=== PATIENT | female | born 1995 | race Caucasian/White ===

== ENCOUNTER 2017-02-14 17:49 | Inpatient (IN) | payer OTHER ==
--- NOTE | 2017-02-14 18:27 | ED ---
Fred Traylor Thomas, scribed for Nnamdi Luu MD on 02/14/17 at 1815 . Psychiatric Complaint - HPI Summary HPI Summary: The pt is a 21 y/o F BIBA in need of a MHE. Per Aleida Luna RN, the patient has two tests tomorrow and her boyfriend has expressed suicidal ideation recently. These stressors have caused her to feel depressed. She feels as if she is somehow responsible for her boyfriends SI and that her presence in the ED today will exacerbate his SI. She is tearful in the examination room. She denies a prior Hx of depression or suicidal ideation. PMHx: previously healthy. PSHx: wisdom teeth removal. SHx: no smoking, occasional alcohol use, no illicit drug use. FHx: DM. She is from [place] and her parents are currently on vacation in [place]. They are aware of her status in the emergency room. - History Of Current Complaint Time Seen by Provider: 02/14/17 17:54 Hx Obtained From: Patient Onset/Duration: Lasting Days - Recent onset, Still Present Timing: Constant Severity Currently: Moderate Character: Depressed Aggravating Factor(s): Recent Stress - boyfriend's SI as well as her two tests tomorrow Alleviating Factor(s): Nothing Recent Stressor(s): Two tests tomorrow and boyfriend has SI PMH/Surg Hx/FS Hx/Imm Hx Previously Healthy: Yes Endocrine/Hematology History: Denies: Hx Diabetes Cardiovascular History: Denies: Hx Hypertension - Surgical History Surgery Procedure, Year, and Place: [place] teeth removal - Family History Known Family History: Positive: Diabetes - Social History Occupation: Student Lives: Dormitory/Roommates Alcohol Use: Occasionally Hx Substance Use: No Substance Use Type: Reports: None Hx Tobacco Use: No Smoking Status (MU): Never Smoked Tobacco Review of Systems Negative: Fever Psychological: Other - Stress, depression All Other Systems Reviewed And Are Negative: Yes Physical Exam Triage Information Reviewed: Yes Vital Signs Reviewed: Yes Appearance: Positive: Well-Appearing, No Pain Distress Skin: Positive: Warm, Skin Color Reflects Adequate Perfusion, Dry Head/Face: Positive: Normal Head/Face Inspection Eyes: Positive: Normal ENT: Positive: Normal ENT inspection Neck: Positive: Supple, Nontender Respiratory/Lung Sounds: Positive: Clear to Auscultation, Breath Sounds Present Cardiovascular: Positive: RRR Abdomen Description: Positive: Nontender, Soft Bowel Sounds: Positive: Present Musculoskeletal: Positive: Normal Neurological: Positive: Normal Psychiatric: Positive: Depressed, Other - She is tearful Course/Dx - Course Course Of Treatment: Ms. Draper came in quite upset. She is labile and labs have been ordered. I expect they will be normal and she will get a MHE. - Differential Dx/Clinical Impression Provider Diagnosis: Situational depression Discharge - Discharge Plan Condition: Stable Disposition: OTHER Discharge Disposition Comment: Change of Shift The documentation as recorded by the Fred suarez Thomas accurately reflects the service I personally performed and the decisions made by me, Nnamdi Luu MD.
[2017-02-14 18:53] LABS: Hematocrit 39 % (35-47); Mean Corpuscular HGB Conc 34 g/dl (31-36); Mean Corpuscular Hemoglobin 31 pg (27-31); Mean Corpuscular Volume 93 fL (80-97); Mean Platelet Volume 7 um3 (7.4-10.4); Red Blood Count 4.15 10^6/ul (4.0-5.4); Red Cell Distribution Width 13 % (10.5-15); White Blood Count 8.2 10^3/ul (3.5-10.8)
[2017-02-14 19:08] LABS: ALT 35 U/L (7-52); AST 43 U/L (13-39); Albumin 4.2 g/dL (3.2-5.2); Alkaline Phosphatase 52 U/L (34-104); Anion Gap 8 mmol/L (2-11); BUN/Creatinine Ratio 21.2 (8-20); Blood Urea Nitrogen 14 mg/dL (6-24); CO2 Carbon Dioxide 24 mmol/L (22-32); Calcium 9.4 mg/dL (8.6-10.3); Chloride 104 mmol/L (101-111); EGFR African American 148.4 (>60); EGFR Non-African American 115.4 (>60); Globulin 3.1 g/dL (2-4); Glucose 89 mg/dL (70-100); Potassium 3.9 mmol/L (3.5-5.0); Sodium 136 mmol/L (133-145); Total Protein 7.3 g/dL (6.4-8.9)
[2017-02-14 19:33] LABS: Acetaminophen < 15 mcg/mL; Alcohol < 10 mg/dL (<10); Salicylate < 2.50 mg/dL (<30)
[2017-02-14 20:02] LABS: Urine Bilirubin Negative (Negative); Urine Glucose Negative (Negative); Urine Nitrite Negative (Negative)
[2017-02-14 20:23] LABS: Benzodiazepine Urine Screen None Detected (None Detect)
[2017-02-15] MEDS ORDERED: Acetaminophen TAB* 325 MG PO PRN (04:07)
[2017-02-15] MEDS ORDERED: Al Hydrox/Mg Hydrox/Simet LIQ* 30 ML UDC PO PRN (04:07)
[2017-02-15] MEDS: Vitamin THERAPEUTIC TAB PO SCH (11:16)
[2017-02-15] MEDS: hydrOXYzine HCL TAB* 25 MG PO PRN (13:46)
--- NOTE | 2017-02-15 18:44 | HP ---
HISTORY AND PHYSICAL: DATE OF ADMISSION: 02/15/17 SUPERVISING PSYCHIATRIST: Dr. Jackson Slater * (DICTATED BY PRAKASH NELSON NP) JUSTIFICATION FOR ADMISSION: The patient presented to the emergency department via 9.41. She was sent there from [facility] due to feelings of self -harm and suicidal ideation. She had a plan for suicide include a set of knife in her bedroom. The patient merits hospitalization for immediate safety and stabilization. CHIEF COMPLAINT TODAY: "I felt so trapped, there was no way out." HISTORY OF PRESENT ILLNESS: The patient is a 21-year-old [employer] student. 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 She states that her freshman year of college "went perfectly." Approximately, 1 year ago, she started dating a young man named Loco. Towards the end of past summer, he was having increased depression and threatening suicide daily. He leaned on her quite a lot and expected her to prevent him from acting on his suicidal thoughts. His mother also asked Kathryn to watch over him and put extra pressure on Kathryn to make sure that Loco was safe. Kathryn reports that over the past few weeks, she has had decreasing motivation. She has had decreased concentration. She has not been able to study for her midterm exams. She states that she has been increasingly nervous including her stomach hurting and throwing up. She reports difficulty sleeping. She states that last Sunday "something in me " and has not been herself since then. Yesterday, she went to a walking appointment at [facility] and was sent to the emergency room due to her high risk of suicide. The patient was agreeable to mental health evaluation and admission to the mental health unit. She states that she saw her boyfriend walk past her room in the emergency room and this frightened her. She states that she did not want to have to deal with him if he were in the same mental health unit or same emergency room. She denies OCD symptoms. She denies history of eating disorder. She denies previous periods of depression or self-harm. She denies AV hallucinations, delusions, or phobias. PAST PSYCHIATRIC HISTORY: None. TRAUMA/ABUSE HISTORY: Denies. PAST MEDICAL HISTORY: No active medical problem. Denies history of head injury , seizure, or concussion. LMP last week. PRIMARY CARE PROVIDER: [facility]. CURRENT MEDICATIONS: 1. control pill daily. 2. Ampicillin twice a day for acne. She is unsure of the name and dose of the medication. ALLERGIES: No known drug allergies. FAMILY PSYCHIATRIC HISTORY: Her older sister had depression in her teens and attempted suicide. Maternal uncle suicided approximately 30 years ago. No other known family history. SOCIAL HISTORY: Kathryn is the youngest of the 2 daughters by parents. She grew up in the [facility]. Her 21-year-old sister, Tabatha, is a college student at [employer] in [place]. Her parents are Sara and Stanton. 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 She is thoroughly enjoying her education with exception of above stressors. She denies substance use. She denies or legal history. She currently lives in a house with dozen male friends. She has a close network of friends including her roommate from last year. She states she is still interactive with her friends from high school via social media. REVIEW OF SYSTEMS: Constitutional: Negative. The patient denies headache or double vision. Denies sore throat, cough, chest pain, difficulty breathing, abdominal pain, nausea, vomiting, diarrhea, or constipation. She denies difficulty ambulating, enlarged lymph nodes, rashes, fevers, or changes in mentation. PHYSICAL EXAMINATION GENERAL: Positive well appearing. No pain or distress. VITAL SIGNS: Most recently, temp 98.5, pulse 68, respiratory rate 16, O2 saturation 100%, BP 108/68. Height 5 feet 3 inches, weight 120 pounds. HEENT: Head and face: Normal head and face inspection. Eyes: Positive normal EOMI. ENT: Positive normal ENT inspection. Trachea midline. NECK: Positive supple, nontender. RESPIRATORY: Lung sounds positive, clear to auscultation. Breath sounds present. CARDIOVASCULAR: Positive heart, regular rate and rhythm. Pulses symmetrical bilaterally in upper and lower extremities. ABDOMEN: Soft, nontender. Bowel sounds present. MUSCULOSKELETAL: Strength normal ROM. SKIN: Positive warm and dry. Skin color reflects adequate perfusion. MENTAL STATUS EXAM: The patient is a small-framed, 21-year-old female, lying in bed with covers over her. She is tearful. She is cooperative, answers questions fully. She appears stated age, alert and oriented x3. Concentration is fair. Memory is 3/3. Her mood is "terrified." Affect is tearful. Eye contact is good. Speech is soft and articulate. Thought process circumstantial in regards to relationship with her boyfriend. Thought content is positive for SI. She is pretty occupied with welfare of her boyfriend. Her insight is good. Her judgment is good. Her fund of knowledge is excellent. LABORATORY DATA: Obtained in the emergency department, CBC is grossly unremarkable. Chemistry: BUN, creatinine ratio is high at 21.2. AST 43. TSH normal at 1.6. Negative HCG. Urinalysis is normal. Toxicology negative for salicylates, acetaminophen, or alcohol, and her urine drug screen was negative. DIAGNOSES: Adjustment disorder with depressed mood, severe stressors related to mental illness with her significant other. ASSESSMENT: Mechelle is a 21-year-old [employer] sophomore, who reports significant decline in functioning in the past month. She reports that her boyfriend of approximately 1 year has been increasingly depressed and threatening suicide. He and his mother have requested that she help maintain his safety and she has felt that this was taxing on her. 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 Her mother, Sara, is flying from [place] and arriving tomorrow afternoon. She will be visiting with Kathryn until Sunday next week. PLAN: Admit to adult behavioral services unit on status, code status is full, safety checks every 15 minutes. The patient does not seem appropriate for antidepressant therapy at this time, as this is seemingly an acute exacerbation of her symptoms. She is agreeable to current p.r.n. use of hydroxyzine for anxiety. She is encouraged to call her friend or roommate to bring her own medications from home, which she is agreeable to do. We will initiate therapeutic, milieu, individual sessions, and psychoeducational groups. Estimated length of stay is 2 to 3 days. If the patient and mother are agreeable, she may be discharged to her mother tomorrow after meeting with treatment team. The patient will be referred to continue outpatient services at the time of discharge. PRAKASH NELSON, SMOKING TOBACCO CUTTER OPERATOR [id number]/[facility] #: [id number] [facility] STATE HOSPITALRocael
[2017-02-16] MEDS ORDERED: Influenza VAC *QUAD* 2017-18* 0.5 ML SYRINGE IM ONE (09:00)
[2017-02-16] MEDS: Vitamin THERAPEUTIC TAB PO SCH (09:28)
[2017-02-16] MEDS: hydrOXYzine HCL TAB* 25 MG PO PRN (09:32)
--- NOTE | 2017-02-16 16:58 | PN ---
Subjective - Subjective Service Type: 60227 Hosp care 15 min low complexity Subjective: Patient presents as dysphoric with flat affect. She reports her boyfriend's mother visited last evening and apologized to Kathryn. However, she also asked Kathryn to wait to break up with Loco until he is stable. Kathryn states that she intends to "just tell her what she wants to hear and do what's best for me." She states that she is unsure about readiness for discharge. Objective - Appearance Appearance: Thin Framed Dysmorphic Features: Yes Hygiene: Normal Grooming: Fairly Well Kept - Behavior Psychomotor Activities: Abnormal-Decreased Exhibits Abnormal Movement: No - Attitude and Relatedness Attitude and Relatedness: Withdrawn Eye Contact: Fair - Speech Quality: Unpressured Latencies: Normal Quantity: Appropriate - Mood Patient's Decription of Mood: "Fine" - Affect Observed Affect: Depressed Affect Consistent with: Dysphoria - Thought Process Patient's Thought Process: Coherent Thought Content: No Passive Wish, No Suicidal Planning, No Homicidal Ideation, No Paranoid Ideation - Sensorium Experiencing Hallucinations: No, Sensorium is Clear Type of Hallucinations: Visual: No, Auditory: No, Command: No - Level of Consciousness Level of Consciousness: Alert Orientation: Yes Intact, Yes Orientated to Time, Yes Orientated to Place, Yes Orientated to Person - Impulse Control Impulse Control: Tenuous - Insight and Judgement Insight and Judgement: Fair - Group Participation Particating in Group Activities: No - Medication Management Medication Management Adherence: Yes Assessment - Assessment Merits Inpatient Hospitalization: For Immediate Safety, For Stabilization, For Discharge Planning Inpatient DSM-IV Dx: adjustment d/o with depressed mood Clinical Impression: Bonny 21yo female, [employer] sophomore. Adjustment d/o with depressed mood. Her boyfriend has been very depressed and suicidal. He and his mother have expected her to monitor and support him. She crumbled with the unrealistic expectations. Plan - Plan Treatment Plan: Name: RORY PANIAGUA Birthdate: 1995 [id number] continue acute intensive psychiatric treatment. Discharge planned for sunday to return to [employer] and attend [facility] appt in the afternoon. Continued Medication Management: Different Medication Medications: Current Medications Acetaminophen (Tylenol Tab*) 650 mg PO Q4H PRN PRN Reason: PAIN or TEMP > 101 F Al Hydrox/Mg Hydrox/Simethicone (Maalox Plus*) 30 ml PO Q4H PRN PRN Reason: INDIGESTION Hydroxyzine HCl (Atarax Tab*) 25 mg PO Q6H PRN PRN Reason: ANXIETY Last Admin: 02/16/17 09:32 Dose: 25 mg Multivitamins (Theragran Tab*) 1 tab PO DAILY [facility] Last Admin: 02/16/17 09:28 Dose: Not Given - Discharge Plan Discharge Plan: Outpatient Follow Up Outpatient Program: Counseling/Psych Services at [facility]
[2017-02-17] MEDS: ADAPALENE TOPICAL SCH (10:13)
[2017-02-17] MEDS: [UNRECOGNIZED DRUG - MIXTURE] PO SCH (10:13)
[2017-02-17] MEDS: Ampicillin CAP* 500 MG PO SCH (10:13)
[2017-02-17] MEDS: BENZOYL PEROXIDE TOPICAL SCH (10:13)
[2017-02-17] MEDS: Vitamin THERAPEUTIC TAB PO SCH (10:24)
[2017-02-17] MEDS: hydrOXYzine HCL TAB* 25 MG PO PRN (10:54)
--- NOTE | 2017-02-17 17:05 | PN ---
<TayMeghana - Last Filed: 02/17/17 17:23> Subjective - Subjective Service Type: 21113 Hosp care 15 min low complexity Subjective: Kathryn is tearful, reports her boyfriend is planning to visit this evening and she will break up with him. Describes her mood as depressed, but also that she is anxious to put this relationship in the past. She states that she needs to get out of here, wants to get on with her life. Reports thoughts of SIB are intermittent. Denies suicidal ideation. Mood is "depressed". 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 Objective - Appearance Appearance: Healthy Appearing Dysmorphic Features: No Hygiene: Normal Grooming: Well Kept - Behavior Psychomotor Activities: Normal Exhibits Abnormal Movement: No - Attitude and Relatedness Attitude and Relatedness: Appropriate Eye Contact: Fair - Speech Quality: Unpressured Latencies: Normal Quantity: Appropriate - Mood Patient's Decription of Mood: "depressed" - Affect Observed Affect: Tearful Affect Consistent with: Dysphoria - Thought Process Patient's Thought Process: Coherent, Goal Directed Thought Content: No Passive Wish, No Suicidal Planning, No Homicidal Ideation, No Paranoid Ideation - Sensorium Experiencing Hallucinations: No, Sensorium is Clear Type of Hallucinations: Visual: No, Auditory: No, Command: No - Level of Consciousness Level of Consciousness: Alert Orientation: Yes Intact, Yes Orientated to Time, Yes Orientated to Place, Yes Orientated to Person - Impulse Control Impulse Control: Intact - Insight and Judgement Insight and Judgement: Fair - Group Participation Particating in Group Activities: Yes - Medication Management Medication Management Adherence: Yes - Hydroxyzine 25 mg ealrlier in day for anxiety over boyfriend coming to visit. 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 Admitted on 02/14/17, with suicidal ideation in the context of her boyfriend having his own SI and feeling that she needs to be responsible for his mental health. Additional stressors reported are 2 midterms this week she was unable to take. She has no past psychiatric history, no active medical problems. Her mother is here in town until Wednesday 02/21. I spoke briefly with mother who states that Mechelle has an appointment scheduled with [facility] on 02/19 at 3pm. Plan - Plan Treatment Plan: Name: MECHELLE PANIAGUA Birthdate: 1995 [id number] Medications: Current Medications Acetaminophen (Tylenol Tab*) 650 mg PO Q4H PRN PRN Reason: PAIN or TEMP > 101 F Al Hydrox/Mg Hydrox/Simethicone (Maalox Plus*) 30 ml PO Q4H PRN PRN Reason: INDIGESTION Ampicillin (Ampicillin Cap*) 500 mg PO BID [facility] Last Admin: 02/17/17 10:13 Dose: 500 mg Hydroxyzine HCl (Atarax Tab*) 25 mg PO Q6H PRN PRN Reason: ANXIETY Last Admin: 02/17/17 10:54 Dose: 25 mg Multivitamins (Theragran Tab*) 1 tab PO DAILY [facility] Last Admin: 02/17/17 10:24 Dose: Not Given Pto Nf Med* Tri Lo (Karen Bcp) 1 admin PO DAILY [facility] Last Admin: 02/17/17 10:13 Dose: 1 admin Pto Nf Med* Epiduo Forte Cream ( Adapalene/Benzoil Peroxide) 1 admin TOPICAL DAILY [facility] Last Admin: 02/17/17 10:13 Dose: 1 admin <Lazaro Huggins - Last Filed: 02/18/17 17:45> Subjective - Subjective Subjective: Reviewed this note written by student psychiatric nurse practitioner, Meghana Cross, and approved it after discussion with her. Plan - Plan Treatment Plan: Name: MECHELLE PANIAGUA Birthdate: 1995 [id number] Medications: Current Medications Acetaminophen (Tylenol Tab*) 650 mg PO Q4H PRN PRN Reason: PAIN or TEMP > 101 F Al Hydrox/Mg Hydrox/Simethicone (Maalox Plus*) 30 ml PO Q4H PRN PRN Reason: INDIGESTION Ampicillin (Ampicillin Cap*) 500 mg PO BID [facility] Last Admin: 02/18/17 09:54 Dose: 500 mg Hydroxyzine HCl (Atarax Tab*) 25 mg PO Q6H PRN PRN Reason: ANXIETY Last Admin: 02/17/17 10:54 Dose: 25 mg Multivitamins (Theragran Tab*) 1 tab PO DAILY [facility] Last Admin: 02/18/17 09:54 Dose: Not Given Pto Nf Med* Tri Lo (Karen Bcp) 1 admin PO DAILY [facility] Last Admin: 02/18/17 09:54 Dose: 1 admin Pto Nf Med* Epiduo Forte Cream ( Adapalene/Benzoil Peroxide) 1 admin TOPICAL DAILY [facility] Last Admin: 02/18/17 09:54 Dose: 1 admin
[2017-02-18] MEDS: Vitamin THERAPEUTIC TAB PO SCH (09:54)
[2017-02-18] MEDS: [UNRECOGNIZED DRUG - MIXTURE] PO SCH (09:54)
[2017-02-18] MEDS: ADAPALENE TOPICAL SCH (09:54)
[2017-02-18] MEDS: Ampicillin CAP* 500 MG PO SCH ×3 (09:54→20:50)
[2017-02-18] MEDS: BENZOYL PEROXIDE TOPICAL SCH (09:54)
[2017-02-19 08:18] VITALS: BP 102/54
[2017-02-19] MEDS: Ampicillin CAP* 500 MG PO SCH (09:04)
[2017-02-19] MEDS: ADAPALENE TOPICAL SCH (09:06)
[2017-02-19] MEDS: [UNRECOGNIZED DRUG - MIXTURE] PO SCH (09:06)
[2017-02-19] MEDS: BENZOYL PEROXIDE TOPICAL SCH (09:06)
[2017-02-19] MEDS: Vitamin THERAPEUTIC TAB PO SCH (09:06)
--- NOTE | 2017-02-19 12:29 | DCNOTE ---
<KiLibraCabaMeghana garcia - Last Filed: 02/19/17 12:30> Subjective - Subjective Service Types: 21349 Hosp DC Day Mgmt simple under 30 min - Patient is found smiling with bags packed for discharge. She is alert and oriented x3. Thought are orgaqnized and Discharge Date: 02/19/17 Subjective: Patient is found smiling with bags packed for discharge. She is alert and oriented x3. Her mood is good, affect is full. Thoughts are organized and forward thinking. Denies suicidal/homicidal ideation, denies urge for self injurious behavior. Mother is here until Sunday, patient plans to spend [facility] with [facility]. She has a [facility] appointment at 3pm today. She is looking forward to "getting her brain in gear again", and back to school. Objective - Appearance Appearance: Healthy Appearing Dysmorphic Features: No Hygiene: Normal Grooming: Well Kept - Behavior Psychomotor Activities: Normal Exhibits Abnormal Movement: No - Attitude and Relatedness Attitude and Relatedness: Well Related Eye Contact: Good - Speech Quality: Unpressured Latencies: Normal Quantity: Appropriate - Mood Patient's Decription of Mood: "Good" - Affect Observed Affect: Euphoric Affect Consistent with: Euthymia - Thought Process Patient's Thought Process: Coherent, Goal Directed Thought Content: No Passive Wish, No Suicidal Planning, No Homicidal Ideation, No Paranoid Ideation - Sensorium Experiencing Hallucinations: No, Sensorium is Clear Type of Hallucinations: Visual: No, Auditory: No, Command: No - Level of Consciousness Level of Consciousness: Alert Orientation: Yes Intact, Yes Orientated to Time, Yes Orientated to Place, Yes Orientated to Person - Impulse Control Impulse Control: Intact - Insight and Judgement Insight and Judgement: Good - Group Participation Particating in Group Activities: Yes - Medication Management Medication Management Adherence: Yes - no psychotropics DC Assessment - Assessment Clinical Impression: 21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 Admitted on 02/14/17, with suicidal ideation in the context of her boyfriend having his own SI and feeling that she needs to be responsible for his mental health. Additional stressors reported are 2 midterms this week she was unable to take. She has no past psychiatric history, no active medical problems. Her mother is here in town until Wednesday 02/21. I spoke briefly with mother who states that Mechelle has an appointment scheduled with [facility] on 02/19 at 3pm. Merits Inpatient Hospitalization: No Clear for Discharge: Adequate Clinical Respons, Acceptable Safety Profile Inpatient DSM-IV Dx: adjustment d/o with depressed mood - [place] [facility] Mental Illness: Adjustment disorder with depressed mood. - [place] [facility] MR and Personality Disorder: deferred - [place] [facility] Stressors: recent romantic break up; mid-term exams Discharge Planning - Discharge Planning Discharge Plan: Outpatient Follow Up Outpatient Program: Counseling/Psych Services at [facility] Recommendations for Continuing Care: Psychotherapy Medications: Current Medications Acetaminophen (Tylenol Tab*) 650 mg PO Q4H PRN PRN Reason: PAIN or TEMP > 101 F Al Hydrox/Mg Hydrox/Simethicone (Maalox Plus*) 30 ml PO Q4H PRN PRN Reason: INDIGESTION Ampicillin (Ampicillin Cap*) 500 mg PO BID [facility] Last Admin: 02/19/17 09:04 Dose: 500 mg Hydroxyzine HCl (Atarax Tab*) 25 mg PO Q6H PRN PRN Reason: ANXIETY Last Admin: 02/17/17 10:54 Dose: 25 mg Multivitamins (Theragran Tab*) 1 tab PO DAILY [facility] Last Admin: 02/19/17 09:06 Dose: Not Given Pto Nf Med* Tri Lo (Karen Bcp) 1 admin PO DAILY [facility] Last Admin: 02/19/17 09:06 Dose: 1 admin Pto Nf Med* Epiduo Forte Cream ( Adapalene/Benzoil Peroxide) 1 admin TOPICAL DAILY [facility] Last Admin: 02/19/17 09:06 Dose: 1 admin Discharge Planning: Prescriptions provided for discharge [] Yes [] No Follow up care details as per social work arrangements. Patient response to discharge plan: [] eager for discharge [] agreeable with discharge plan [] ambivalent about discharge [] disagrees with discharge today <Lazaro Huggins - Last Filed: 02/19/17 16:15> Subjective - Subjective Subjective: Reviewed this note written by student psychiatric nurse practitioner, Meghana Cross, patient seen with her and approved discharge note after discussion with her. Discharge Planning - Discharge Planning Discharge Planning: Prescriptions provided for discharge [] Yes [] No Follow up care details as per social work arrangements. Patient response to discharge plan: [] eager for discharge [] agreeable with discharge plan [] ambivalent about discharge [] disagrees with discharge today
--- NOTE | 2017-02-20 22:38 | DS ---
AMENDED REPORT NOW INCLUDES COSIGNER DESIGNATION CC: [facility] * DISCHARGE SUMMARY: DATE OF ADMISSION: 02/15/17 DATE OF DISCHARGE: 02/19/17 SUPERVISING PSYCHIATRIST: Dr. Jackson Slater * (DICTATED BY VASILIY GONZALES) CONDITION AT THE TIME OF DISCHARGE: The patient improved, she was euthymic with full affect. She denied suicidal or homicidal ideation. She reported improvement in stress relating to relationship with her boyfriend and has plans to end this relationship. She was agreeable to stay with her mother until her mother returns to [place] on Sunday. The patient also is looking forward to resuming academic course work. MENTAL STATUS EXAM: The patient is healthy appearing white female, who appears stated age. She is well-groomed and dressed in her own clothing. No psychomotor abnormality present. She is cooperative and talkative. Her eye contact is good. Her speech is soft and articulate. She reports her mood is good. Her affect is bright. Thought process is coherent and goal directed. Thought content is negative for SI, HI or . She denies AV hallucinations or delusions. She is alert and oriented x3. Impulse control is good. Insight and judgement is good and fund of knowledge is excellent. DISCHARGE INSTRUCTIONS: Instructions given to the patient, she is not discharged on any medications other than her control pill and acne medicine as prescribed by her primary care provider. Diet is regular. Activities: Ambulation as tolerated. Tobacco cessation not applicable. There are no pending labs or diagnostic studies at the time of discharge. Followup Care: The patient has an appointment with [facility] on 02/19/17 at 3:00 p.m., and she will follow up with [facility] as needed for medication management for oral contraception and acne. HOSPITAL COURSE: A. Reason for admission: The patient presented to the emergency department via after being sent there from [facility]. She had a walk-in appointment at [facility] and expressed suicidal ideation with a plan including set of knives in her bedroom. She was agreeable to voluntary admission to the adult behavioral services unit. B. Psychiatric treatment rendered: The patient was admitted to adult behavioral services unit on 39 status. Code status was full. Safety checks every 15 minutes. The patient was agreeable to p.r.n. use of hydroxyzine for anxiety. She denied need for antidepressant therapy and did not seem appropriate due to the acute nature of her depressed mood. She was cooperative and talkative upon approach. She identified her primary stressor of boyfriend' s suicidal ideation in the past month. He and his mother had placed responsibility on her for his safety and she found this to be taxing. The patient was insightful in that she encouraged him to obtain professional help due to the nature of the relationship. She had increasingly difficulties attending to classes and studies. She reported being overwhelmed and trying to distance herself from the boyfriend in [facility]. The boyfriend followed her and was also admitted to the emergency department; however, he was transferred to another psychiatric facility. His mother came to [place] from the [facility] and visited the patient on the unit, expressing that she was sorry and also asking the patient to wait to break up with the boyfriend until he is more stable. The patient identified that this was stressful and she also reported that she is going to "tell her what she wants to hear, but do what I needed to do for me any ways." The patient's mother arrived from the [facility] in the next day and supportive and knowledgeable about current situation. The patient denied need for mother or proposal lead writer to intervene in regards to interactions with her boyfriend's mother. The patient wanted to remain on the unit and benefit from programming and distance from boyfriend. She was increasingly interactive and requested to be discharged. The patient agreed to follow up with [facility] and was given an appointment on the day of discharge at 3:00 p.m. Her mother was present to pick her up and was also agreeable to discharge plan. The patient was discharged to the care of her mother and will return to her apartment off campus after her mother leaves [facility] on Sunday. PRAKASH NELSON, GERSON [id number]/[facility] #: [id number] CORRY
== END 2017-02-19 12:30 | disposition home or self-care (01) | DRG 754 ==
LOC: EDBD → ED 17:49 → BSU 02-15 03:06
PROVIDERS: ADMIT Psychiatry & Neurology Psychiatry; ATTEND Psychiatry & Neurology Psychiatry
DX: F43.21 Adjustment disorder with depressed mood (principal); R45.851 Suicidal ideations; Z83.3 Family history of diabetes mellitus; Z72.89 Other problems related to lifestyle; Z81.8 Family history of other mental and behavioral disorders
CPT/HCPCS: 36415; 80053; 80307; 80320; 80329; 81003; 84443; 84702; 85025; 90686; 99222; 99231; 99238; A9270-GY; G0480

== ENCOUNTER 2019-01-16 17:24 | Emergency (ER) | payer OTHER ==
[2019-01-16 18:30] LABS: ABS Eosinophils 0.1 10^3/ul (0-0.6); ABS Lymphocytes 2.4 10^3/ul (1.0-4.8); ABS Monocytes 0.6 10^3/ul (0-0.8); ABS Neutrophils 4.9 10^3/ul (1.5-7.7); Eosinophil % 0.7 %; Hematocrit 37 % (35-47); Hemoglobin 12.7 g/dL (12.0-16.0); Lymphocyte % 29.9 %; Mean Corpuscular HGB Conc 35 g/dL (31-36); Mean Corpuscular Hemoglobin 31 pg (27-31); Mean Corpuscular Volume 89 fL (80-97); Mean Platelet Volume 7.9 fL (7.4-10.4); Platelet Count 305 10^3/uL (150-450); Red Blood Count 4.13 10^6 /uL (3.70-4.87); Red Cell Distribution Width 14 % (10-15)
[2019-01-16 18:43] LABS: Albumin 4.5 g/dL (3.2-5.2); Albumin/Globulin Ratio 1.6 (1-3); BUN/Creatinine Ratio 19.5 (8-20); C Reactive Protein 3.71 mg/L (<8.01); Calcium 9.9 mg/dL (8.6-10.3); EGFR African American 114.5 (>60); EGFR Non-African American 94.6 (>60); Globulin 2.8 g/dL (2-4); Potassium 4.1 mmol/L (3.5-5.0); Total Bilirubin 0.3 mg/dL (0.2-1.0); Total Protein 7.3 g/dL (6.4-8.9)
[2019-01-16 18:46] LABS: HCG Pregnancy 0.68 mIU/mL
[2019-01-16] MEDS ORDERED: Pantoprazole IV* 40 MG IV ONE (21:16)
[2019-01-16] MEDS ORDERED: NS 0.9% 1000 ML** 1,000 ML IV ONE (21:16)
[2019-01-16] MEDS ORDERED: Ondansetron INJ* 2 MG/ML VIAL IV ONE (21:16)
[2019-01-16 21:39] LABS: Urine Appearance Cloudy; Urine Bilirubin Negative (Negative); Urine Blood Negative (Negative); Urine Color Yellow; Urine Glucose Negative (Negative); Urine Ketones Trace (Negative); Urine Nitrite Negative (Negative); Urine Protein Negative (Negative); Urine Urobilinogen Negative (Negative)
--- NOTE | 2019-01-16 22:13 | ED ---
Abdominal Pain/Female - HPI Summary HPI Summary: This pt is a 23 Y/O F presenting to [facility] with a CC of bilateral flank pain that radiates into her back, is currently rated a 6/10 in severity and has been present since 01/14/19. The pain is described as cramping. She states that since the onset she has had N/V and blood coming from her rectum during a BM. She states that she has had a decreased appetite since the onset. She denies any BMs today, a fever, urinary symptoms, and chills. She went to [email or web address] and they recommended coming to [facility]. She states that her last period was a couple weeks ago. She states that she drinks casually and uses marijuana casually. She stated that her dads brother has Crohns disease. - History of Current Complaint Chief Complaint: EDAbdPain Stated Complaint: ABD PAIN PER PT Time Seen by Provider: 01/16/19 21:16 Hx Obtained From: Patient Hx Last Menstrual Period: 01/02/19 Onset/Duration: Sudden Onset, Lasting Days - 2, Still Present Timing: Constant Severity Initially: Moderate Severity Currently: Moderate Pain Intensity: 6 Pain Scale Used: 0-10 Numeric Location: Flank - bilateral Radiates: Yes Radiates to: Back Character: Cramping Aggravating Factor(s): Food Alleviating Factor(s): Nothing Associated Signs and Symptoms: Positive: Negative - chills, Back Pain, Blood in Stool, Decreased Appetite, Nausea, Vomiting, Other: - POSITIVE: constipation. Negative: Fever Allergies/Adverse Reactions: Allergies Allergy/AdvReac Type Severity Reaction Status Date / Time vancomycin Allergy Unknown Verified 01/16/19 21:22 Reaction Details contrast dye Allergy Airway Uncoded 01/16/19 21:22 Obstruction Home Medications: Home Medications Pristiq 75 mg PO DAILY 01/16/19 [History Confirmed 01/16/19] Sprintec 28 Day Tablet 1 tab PO DAILY 01/16/19 [History Confirmed 01/16/19] PMH/Surg Hx/FS Hx/Imm Hx Previously Healthy: Yes Endocrine/Hematology History: Denies: Hx Diabetes Cardiovascular History: Denies: Hx Hypertension Sensory History: Reports: Hx Contacts or Glasses - not with patient Denies: Hx Hearing Aid Opthamlomology History: Reports: Hx Contacts or Glasses - not with patient Psychiatric History: Reports: Hx Anxiety, Hx Depression Denies: Hx Inpatient Treatment, Hx Community Mental Health Tx, Hx Suicide Attempt, Hx of Violent Episodes Against Others, Hx Substance Abuse - Surgical History Surgical History: Yes Surgery Procedure, Year, and Place: [place] teeth removal 2 years ago. Hernia repair age 13 Infectious Disease History: No Infectious Disease History: Denies: Traveled Outside the [place] in Last 30 Days - Family History Known Family History: Positive: Diabetes, Other - Dad's brother: Crohn's Disease - Social History Occupation: Student - [employer] Lives: Dormitory/Roommates Alcohol Use: Occasionally Hx Substance Use: Yes Substance Use Type: Reports: Marijuana Hx Tobacco Use: No Smoking Status (MU): Never Smoked Tobacco Have You Smoked in the Last Year: No Review of Systems Negative: Fever, Chills Positive: Abdominal Pain - bilateral flank pain , Vomiting, Nausea, Other - POSITIVE: constipiation Genitourinary: Negative All Other Systems Reviewed And Are Negative: Yes Physical Exam - Summary Physical Exam Summary: General: Well-developed, Well-nourished (MALE/FEMALE). No acute distress. HEENT: Normocephalic, Atraumatic. Eyes: Conjuctiva normal, PERRL. Ears: TMs within normal limits. Nares: (-) discharge, (-) erythema. Oropharynx: Clear, mucous membranes moist, (-) exudates. Neck: Soft, FROM, (-) lymphadenopathy, (-) thyromegaly, (-) JVD. Cardiovascular: Normal sinus rhythm, (-) murmur. Lungs: Clear to auscultation bilaterally (-) wheezes, (-) rales, (-) rhonchi. Abdomen: Soft, non-tender, non-distended, (-) organomegaly, normal bowel sounds. Back: (-) CVA tenderness Extremities: No edema. Skin: Warm, dry, (-) rash. Neuro: Alert and oriented x3, no focal deficits. Psychiatric: Mood normal, affect normal. Triage Information Reviewed: Yes Vital Signs On Initial Exam: Initial Vitals Temp Pulse Resp BP Pulse Ox 98.4 F 83 18 149/90 95 01/16/19 17:28 01/16/19 17:28 01/16/19 17:28 01/16/19 17:28 01/16/19 17:28 Vital Signs Reviewed: Yes Diagnostics - Vital Signs Vital Signs Temp Pulse Resp BP Pulse Ox 01/16/19 19:49 98.3 F 79 18 138/76 100 01/16/19 17:28 98.4 F 83 18 149/90 95 - Laboratory Lab Results: Lab Results 01/16/19 01/16/19 01/16/19 Range/Units 17:59 17:59 17:59 WBC 8.0 (3.5-10.8) 10^3/uL RBC 4.13 (3.70-4.87) 10^6 /uL Hgb 12.7 (12.0-16.0) g/dL Hct 37 (35-47) % MCV 89 (80-97) fL MCH 31 (27-31) pg MCHC 35 (31-36) g/dL RDW 14 (10-15) % Plt Count 305 (150-450) 10^3/uL MPV 7.9 (7.4-10.4) fL Neut % (Auto) 60.9 % Lymph % (Auto) 29.9 % [place] % (Auto) 8.0 % Eos % (Auto) 0.7 % Baso % (Auto) 0.5 % Absolute Neuts (auto) 4.9 (1.5-7.7) 10^3/ul Absolute Lymphs (auto) 2.4 (1.0-4.8) 10^3/ul Absolute Monos (auto) 0.6 (0-0.8) 10^3/ul Absolute Eos (auto) 0.1 (0-0.6) 10^3/ul Absolute Basos (auto) 0.0 (0-0.2) 10^3/ul Absolute Nucleated RBC 0.0 10^3/ul Nucleated RBC % 0.0 Sodium 138 (135-145) mmol/L Potassium 4.1 (3.5-5.0) mmol/L Chloride 107 (101-111) mmol/L Carbon Dioxide 24 (22-32) mmol/L Anion Gap 7 (2-11) mmol/L BUN 15 (6-24) mg/dL Creatinine 0.77 (0.51-0.95) mg/dL Est GFR ( Amer) 114.5 (>60) Est GFR (Non-Af Amer) 94.6 (>60) BUN/Creatinine Ratio 19.5 (8-20) Glucose 103 H (70-100) mg/dL Lactic Acid 0.9 (0.5-2.0) mmol/L Calcium 9.9 (8.6-10.3) mg/dL Total Bilirubin 0.30 (0.2-1.0) mg/dL AST 20 (13-39) U/L ALT 13 (7-52) U/L Alkaline Phosphatase 53 (34-104) U/L C-Reactive Protein 3.71 (<8.01) mg/L Total Protein 7.3 (6.4-8.9) g/dL Albumin 4.5 (3.2-5.2) g/dL Globulin 2.8 (2-4) g/dL Albumin/Globulin Ratio 1.6 (1-3) Lipase 30 (11.0-82.0) U/L Beta HCG, Quant 0.68 mIU/mL Urine Color Urine Appearance Urine pH (5-9) Ur Specific [place] (1.010-1.030) Urine Protein (Negative) Urine Ketones (Negative) Urine Blood (Negative) Urine Nitrate (Negative) Urine Bilirubin (Negative) Urine Urobilinogen (Negative) Ur Leukocyte Esterase (Negative) Urine Glucose (Negative) 01/16/19 Range/Units 21:30 WBC (3.5-10.8) 10^3/uL RBC (3.70-4.87) 10^6 /uL Hgb (12.0-16.0) g/dL Hct (35-47) % MCV (80-97) fL MCH (27-31) pg MCHC (31-36) g/dL RDW (10-15) % Plt Count (150-450) 10^3/uL MPV (7.4-10.4) fL Neut % (Auto) % Lymph % (Auto) % [place] % (Auto) % Eos % (Auto) % Baso % (Auto) % Absolute Neuts (auto) (1.5-7.7) 10^3/ul Absolute Lymphs (auto) (1.0-4.8) 10^3/ul Absolute Monos (auto) (0-0.8) 10^3/ul Absolute Eos (auto) (0-0.6) 10^3/ul Absolute Basos (auto) (0-0.2) 10^3/ul Absolute Nucleated RBC 10^3/ul Nucleated RBC % Sodium (135-145) mmol/L Potassium (3.5-5.0) mmol/L Chloride (101-111) mmol/L Carbon Dioxide (22-32) mmol/L Anion Gap (2-11) mmol/L BUN (6-24) mg/dL Creatinine (0.51-0.95) mg/dL Est GFR ( Amer) (>60) Est GFR (Non-Af Amer) (>60) BUN/Creatinine Ratio (8-20) Glucose (70-100) mg/dL Lactic Acid (0.5-2.0) mmol/L Calcium (8.6-10.3) mg/dL Total Bilirubin (0.2-1.0) mg/dL AST (13-39) U/L ALT (7-52) U/L Alkaline Phosphatase (34-104) U/L C-Reactive Protein (<8.01) mg/L Total Protein (6.4-8.9) g/dL Albumin (3.2-5.2) g/dL Globulin (2-4) g/dL Albumin/Globulin Ratio (1-3) Lipase (11.0-82.0) U/L Beta HCG, Quant mIU/mL Urine Color Yellow Urine Appearance Cloudy Urine pH 6.0 (5-9) Ur Specific [place] 1.030 (1.010-1.030) Urine Protein Negative (Negative) Urine Ketones Trace A (Negative) Urine Blood Negative (Negative) Urine Nitrate Negative (Negative) Urine Bilirubin Negative (Negative) Urine Urobilinogen Negative (Negative) Ur Leukocyte Esterase Negative (Negative) Urine Glucose Negative (Negative) Result Diagrams: 01/16/19 17:59 01/16/19 17:59 Lab Statement: Any lab studies that have been ordered have been reviewed, and results considered in the medical decision making process. - CT A/P CT Interpretation Completed By: Radiologist Summary of CT Findings: No acute abnormality identified in the abdomen or pelvis. ED physician has reviewed this report. Re-Evaluation - Re-Evaluation First Eval Re-Evaluation Time: 23:57 Change: Improved Comment: Pt stated that she was feeling better and agreed to an external rectal exam. She has external hemorrhoids that are tender and nonthrombolized. She deffered the internal exam. Abdominal Pain Fem Course/Dx - Course Course Of Treatment: This pt is a 23 Y/O F presenting to [facility] with a CC of bilateral flank pain that is currently rated a 7/10 in severity and has been present since 01/14/19. The pain is described as cramping. She states that since the onset she has had N/V and blood coming from her rectum during a BM. Her dad 's brother had Crohn's disease. She stated that she has been constipated all day. Her PE found no abnormal findings. Her CT A/P found the following results : No acute abnormality identified in the abdomen or pelvis. Pt stated that she was feeling better and agreed to an external rectal exam. She has external hemorrhoids that are tender and nonthrombolized. She deffered the internal exam. She will be discharged home with a Dx external hemorrhoid, nausea, and vomiting. - Diagnoses Provider Diagnoses: Nausea & vomiting, Diarrhea, Hemorrhoids Discharge ED - Sign-Out/Discharge Documenting (check all that apply): Patient Departure - discharge Patient Received Moderate/Deep Sedation with Procedure: No - Discharge Plan Condition: Stable Disposition: HOME Patient Education Materials: Hemorrhoids (ED), Acute Nausea and Vomiting (ED), Acute Diarrhea (ED) [facility] - 2 Days Additional Instructions: PLEASE FOLLOW UP WITH YOUR PRIMARY CARE PROVIDER IN 2-3 DAYS AND RETURN TO THE EMERGENCY DEPARTMENT FOR ANY NEW OR WORSENING SYMPTOMS. - Billing Disposition and Condition Condition: STABLE Disposition: Home - Attestation Statements Document Initiated by Pancho: Yes Documenting Scribe: Ventura Trevino Provider For Whom Pancho is Documenting (Include Credential): Amanda Geiger MD Scribe Attestation: Ventura Traylor scribed for Amanda Geiger MD on 01/17/19 at 0507. Scribe Documentation Reviewed: Yes Provider Attestation: The documentation as recorded by the Ventura suarez accurately reflects the service I personally performed and the decisions made by me, Amanda Geiger MD Status of Scribe Document: Viewed
[2019-01-16] MEDS ORDERED: Metoclopramide IV* 5 MG/ML 2 ML VIAL IV ONE (22:36)
[2019-01-17 00:09] VITALS: BP 111/65
== END 2019-01-17 00:05 | disposition home or self-care (01) ==
LOC: ED 17:24
DX: R11.2 Nausea with vomiting, unspecified (principal); R19.7 Diarrhea, unspecified; K64.4 Residual hemorrhoidal skin tags; K59.00 Constipation, unspecified; R10.30 Lower abdominal pain, unspecified; F32.9 Major depressive disorder, single episode, unspecified; Z88.1 Allergy status to other antibiotic agents; Z91.041 Radiographic dye allergy status
CPT/HCPCS: 36415; 74176; 80053; 81003; 83605; 83690; 84702; 85025; 86140; 96361; 96374; 96375; 99283; J2405; J2765